=== PATIENT | female | born 1995 | race Caucasian/White ===

== ENCOUNTER → 2024-12-06 | Day surgery (SDC) | payer OTHER ==
[~2024-12-06] MED LIST: ACETAMINOPHEN 1000 MG/100 ML 100 ML IV ONE; ADDERALL XR 3030 MG PO; D3-5000125 MCG; FENTANYL CITRATE/PF 100MCG/2 ML INJ ONE; LIDOCAINE HCL 2% LOCAL INJ 5 ML SDV VIAL INJ ONE; MIDAZOLAM HCL 2 MG/2 ML VIAL ONE; PROPOFOL IV EMULSION 10 MG/ML 20 ML VIAL ONE; ROCURONIUM BROMIDE 1 ML IV ONE; SUCCINYLCHOLINE CHLORIDE 20 MG/ML 10ML VIAL ONE; SUGAMMADEX SODIUM 200 MG/2 ML VIAL IV ONE; SYNTHROID50 MCG PO
[2024-12-06] MEDS: LACTATED RINGER'S 1,000 ML ONE (06:26)
[2024-12-06 07:43] VITALS: TEMP 97.5
[2024-12-06] MEDS: FENTANYL CITRATE/PF 100MCG/2 ML INJ ONE (07:58)
[2024-12-06 08:50] VITALS: BP 133/78; PULSE 61; RESP 16; O2SAT 100
== END | disposition home or self-care (01) ==
LOC: OR 05:40
PROVIDERS: ATTEND Otolaryngology
DX: J35.03 Chronic tonsillitis and adenoiditis (principal); F98.8 Other specified behavioral and emotional disorders with onset usually occurring in childhood and adolescence; E03.9 Hypothyroidism, unspecified; T78.40XA Allergy, unspecified, initial encounter; X58.XXXA Exposure to other specified factors, initial encounter; Z79.899 Other long term (current) drug therapy
CPT/HCPCS: 42821; 81025; 88304; J0131; J0330; J2003; J2250; J2704; J3010; J7121